=== PATIENT | male | born 2000 | race Hispanic/Latino ===

== ENCOUNTER 2019-01-28 21:15 | Emergency (ER) | payer OTHER | END 2019-01-28 23:08 | disposition home or self-care (01) | LOC: EDH 21:15 | DX: J02.9 Acute pharyngitis, unspecified (principal) | CPT/HCPCS: 87880 ==

== ENCOUNTER 2019-05-06 13:41 | Emergency (ER) | payer OTHER | END 2019-05-06 14:13 | disposition home or self-care (01) | LOC: EDH 13:41 | DX: F41.1 Generalized anxiety disorder (principal) ==